=== PATIENT | male | born 1990 | race Caucasian/White ===

== ENCOUNTER 2017-12-23 12:00 | Emergency (ER) | payer SELFPAY ==
[~2017-12-23] VITALS: Ht 172.7 cm; Wt 81.8 kg
[2017-12-23 12:05] VITALS: Ht 172.7 cm; Wt 81.8 kg
[2017-12-23 14:10] VITALS: BP 129/66
== END 2017-12-23 14:10 | disposition home or self-care (01) ==
LOC: ED 12:00
DX: S53.402A Unspecified sprain of left elbow, initial encounter (principal); M77.9 Enthesopathy, unspecified; W11.XXXA Fall on and from ladder, initial encounter; Y93.89 Activity, other specified; Y92.89 Other specified places as the place of occurrence of the external cause; Y99.8 Other external cause status
CPT/HCPCS: Q0092